=== PATIENT | female | born 1995 | race African-American/Black ===

== ENCOUNTER 2018-01-27 22:48 | Emergency (ER) | payer SELFPAY ==
[~2018-01-27] VITALS: Ht 167.6 cm; Wt 77.1 kg
[2018-01-27 23:02] VITALS: BP 103/68
[2018-01-27] MEDS ORDERED: IBUPROFEN600 MG ORAL (23:18)
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
[2018-01-27 23:41] VITALS: BP 0/0
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
== END 2018-01-27 23:41 | disposition home or self-care (01) ==
LOC: EMR 23:13
DX: S40.011A Contusion of right shoulder, initial encounter (principal); V43.62XA Car passenger injured in collision with other type car in traffic accident, initial encounter; Y92.410 Unspecified street and highway as the place of occurrence of the external cause
CPT/HCPCS: 99283